=== PATIENT | female | born 1945 | race Caucasian/White ===

== ENCOUNTER → 2018-01-21 12:20 | Outpatient (CLI) | payer MEDICARE, SELFPAY ==
--- NOTE | 2018-01-21 12:22 | BI_ITS ---
MAMMOGRAPHY - BILATERAL SCREENING REASON FOR EXAM: Female, 72 years old. Routine annual screening examination. PERTINENT HISTORY: Non-contributory. TECHNIQUE: Digital bilateral breast yanni (3D mammographic acquisition) in the CC and MLO projections. 2-D mediolateral oblique (MLO) and craniocaudad (CC) views of both breasts were obtained. CAD: Full Field Digital Mammography with Computer Added Detection was performed. COMPARISON: Comparison is made with prior study dated December 21, 2013 and August 17, 2012. FINDINGS: Breast Composition: The breasts are heterogeneously dense, which may obscure small masses. There are no dominant masses or suspicious calcifications. Stable benign-appearing left axillary lymph nodes. No other significant abnormalities are identified. There has been no significant change since the prior study. BI/SCREENING MAMM (CAD), BILAT IMPRESSION: Stable bilateral screening mammogram. Yearly follow-up mammogram recommended. (A) ASSESSMENT CATEGORY: BIRADS Category 2: Benign. A letter regarding these results will be sent to the patient by the facility within 30 days. Approximately 10% of breast cancers are not detected by mammography. A normal mammogram should not delay biopsy of a clinically suspicious abnormality. [id number] Electronically Signed: Kahlil Carroll MD at 15:34 EDT Tel [phone], Service support ,
== END ==
PROVIDERS: Family Provider Internal Medicine; PCP Internal Medicine; Visit Provider Internal Medicine
DX: Z12.31 Encounter for screening mammogram for malignant neoplasm of breast (principal)
CPT/HCPCS: 77063; 77067

== ENCOUNTER → 2018-09-16 08:49 | Outpatient (CLI) | payer MEDICARE, SELFPAY ==
--- NOTE | 2018-09-16 08:53 | BD_ITS ---
STUDY: DUAL ENERGY X-RAY ABSORPTIOMETRY / DXA REASON FOR EXAM: Female, 73 years old. The patient is postmenopausal. Loss of height. TECHNIQUE: Bone Mineral Density (BMD) measurements of lumbar spine and bilateral hips were obtained. COMPARISON: Comparison is made with prior study dated June 12, 2016 and December 21, 2013. FINDINGS: Lumbar Spine (L1-L4): g/cm2 (1.120) / T-score (-0.4) / Z-score (1.3) Findings are suggestive of normal bone density with a low fracture risk. Left Femur Total: g/cm2 (1.092) / T-score (0.7) / Z-score (2.3) Left Femoral Neck: g/cm2 (0.991) / T-score (-0.3) / Z-score (1.5) Right Femur Total: g/cm2 (1.012) / T-score (0.0) / Z-score (1.7) Right Femoral Neck: g/cm2 (1.047) / T-score (0.1) / Z-score (1.9) The T-Scores on the most recent prior examination were: Lumbar Spine (L1-L4): There has been worsening of bone density since the previous examination. Left Femur Total: which represents an improvement of 0.6%. Right Femur Total: which represents an improvement of 1.4%. BD/Dexa Bone Density Study IMPRESSION: The patient is considered normal as outlined below according to World Collins Organization (WHO) criteria with a low fracture risk. There has been improvement of bone density since the previous examination. Reference Information: The T-score is the number of standard deviations above or below the standard which is normal for young adults at their peak bone mineral density. The World Health Organization (WHO) interprets the T-scores as follows: Above -1 Normal bone density Between -1 and -2.5 Osteopenia Equal to / or below -2.5 Osteoporosis As a practical clinical guideline, osteopenia may be graded as follows: Mild -1 through -1.5 Moderate -1.6 through -2.0 Severe -2.1 through -2.4 The Z-score is the number of standard deviations above or below age-matched controls. A Z-score of less than -1.5 would be considered abnormal. References: 1. NIH Osteoporosis and Related Bone Diseases http://www.osteo.org 2. International Society for Clinical Densitometry http://www.iscd.org 3. National Osteoporosis Foundation http://www.nof.org Electronically Signed: Kahlil Carroll, at 11:10 EDT , Service support ,
== END ==
PROVIDERS: Family Provider Internal Medicine; PCP Internal Medicine; Referring Provider Internal Medicine; Visit Provider Internal Medicine
DX: Z78.0 Asymptomatic menopausal state (principal)
CPT/HCPCS: 77080

== ENCOUNTER → 2019-07-05 06:55 | Outpatient (CLI) | payer MEDICARE, SELFPAY ==
--- NOTE | 2019-07-05 06:59 | BI_ITS ---
MAMMOGRAPHY - BILATERAL SCREENING REASON FOR EXAM: Female, 74 years old. Routine annual screening examination. PERTINENT HISTORY: Lost 10 pounds BILATERAL DIGITAL MAMMOGRAM WITH TOMOSYNTHESIS: Mediolateraloblique and craniocaudal views demonstrate no evidence of dominant parenchymal masses. No cluster of microcalcifications or architectural distortion is seen. No evidence of skin thickening is identified. There has been no significant change since 01/22/2000. Breast Density: The breast tissue is extremely dense which may lower the sensitivity of mammography. CAD was used to assist in final assessment. IMPRESSION: NORMAL MAMMOGRAM BILATERALLY. FINAL ASSESSMENT: BIRAD 1 (NEGATIVE) YEARLY MAMMOGRAM RECOMMENDED Electronically Signed: Mark Frias, at 16:51 EST Tel , Service support , BI/SCREEN MAMM (CAD) W/LUIS OSORIO
== END ==
PROVIDERS: PCP Internal Medicine; Referring Provider Internal Medicine; Visit Provider Internal Medicine
DX: Z12.31 Encounter for screening mammogram for malignant neoplasm of breast (principal)
CPT/HCPCS: 77063; 77067

== ENCOUNTER → 2020-10-24 12:32 | Outpatient (CLI) | payer MEDICARE, SELFPAY ==
--- NOTE | 2020-10-24 12:34 | BD_ITS ---
STUDY: DUAL ENERGY X-RAY ABSORPTIOMETRY / DXA REASON FOR EXAM: Female, 75 years old. M810. The patient is postmenopausal. TECHNIQUE: Bone Mineral Density (BMD) measurements of lumbar spine and bilateral hips were obtained. COMPARISON: Comparison is made with prior study dated 09/16/2018. FINDINGS: Lumbar Spine (L1-L4): g/cm2 (1.188) / T-score (0.2) / Z-score (1.9) Findings are suggestive of normal bone density with a low fracture risk. Left Femur Total: g/cm2 (1.033) / T-score (0.2) / Z-score (1.9) Left Femoral Neck: g/cm2 (0.923) / T-score (0.8) / Z-score (1.1) Right Femur Total: g/cm2 (0.975) / T-score (-0.3) / Z-score (1.5) Right Femoral Neck: g/cm2 (0.964) / T-score (-0.5) / Z-score (1.4) The T-Scores on the most recent prior examination were: Lumbar Spine (L1-L4): There has been improvement of bone density since the previous examination. Left Femur Total: which represents a worsening of 5.4%. Right Femur Total: which represents a worsening of 3.7%. BD/Dexa Bone Density Study IMPRESSION: The patient is considered normal as outlined below according to World Collins Organization (WHO) criteria with a low fracture risk. There has been worsening of bone density since the previous examination. Reference Information: The T-score is the number of standard deviations above or below the standard which is normal for young adults at their peak bone mineral density. The World Health Organization (WHO) interprets the T-scores as follows: Above -1 Normal bone density Between -1 and -2.5 Osteopenia Equal to / or below -2.5 Osteoporosis As a practical clinical guideline, osteopenia may be graded as follows: Mild -1 through -1.5 Moderate -1.6 through -2.0 Severe -2.1 through -2.4 The Z-score is the number of standard deviations above or below age-matched controls. A Z-score of less than -1.5 would be considered abnormal. References: 1. NIH Osteoporosis and Related Bone Diseases www osteo.org 2. International Society for Clinical Densitometry www iscd.org 3. National Osteoporosis Foundation www nof.org Electronically Signed: Kahlil Carroll MD at 15:34 EDT , Service support ,
--- NOTE | 2020-10-24 12:34 | BI_ITS ---
MAMMOGRAPHY - BILATERAL SCREENING REASON FOR EXAM: Female, 75 years old. Routine annual screening examination. PERTINENT HISTORY: Non-contributory. TECHNIQUE: Digital bilateral breast luis (3D mammographic acquisition) in the CC and MLO projections. 2-D mediolateral oblique (MLO) and craniocaudad (CC) views of both breasts were obtained. CAD: Full Field Digital Mammography with Computer Added Detection was performed. COMPARISON: Comparison is made with prior study dated 07/05/2019 and 01/21/2018. FINDINGS: Breast Composition: The breasts are heterogeneously dense, which may obscure small masses. There are no dominant masses or suspicious calcifications. Stable small benign-appearing bilateral axillary lymph nodes. No other significant abnormalities are identified. There has been no significant change since the prior study. BI/SCRN MAMM (CAD)W/LUIS BILAT IMPRESSION: Stable bilateral screening mammogram. Yearly follow-up mammogram recommended. (A) ASSESSMENT CATEGORY: BIRADS Category 2: Benign. A letter regarding these results will be sent to the patient by the facility within 30 days. Approximately 10% of breast cancers are not detected by mammography. A normal mammogram should not delay biopsy of a clinically suspicious abnormality. [id number] Electronically Signed: Kahlil Carroll MD at 14:37 EDT , Service support ,
== END ==
PROVIDERS: PCP Internal Medicine; Referring Provider Internal Medicine; Visit Provider Internal Medicine
DX: M81.0 Age-related osteoporosis without current pathological fracture (principal); Z12.31 Encounter for screening mammogram for malignant neoplasm of breast
CPT/HCPCS: 77063; 77067; 77080

== ENCOUNTER → 2022-08-15 | Outpatient (CLI) | payer SELFPAY ==
--- NOTE | 2022-08-15 13:00 | CT_ITS ---
INDICATION: HYPERTENSION EXAMINATION: CT CHEST WITHOUT CONTRAST - CT Chest W/O Contrast Injection. Cardiac over read examination. TECHNIQUE: Helically acquired images were obtained of the chest. A radiation dose optimization technique was used for this scan. IV Contrast dosage and agent: None. COMPARISON: None. FINDINGS: LUNGS, PLEURA AND LARGE AIRWAYS: No masses, consolidation, or edema. No pleural effusion or thickening. No pneumothorax. THYROID: No thyroid lesions. HEART AND PERICARDIUM: Heart size is normal. No pericardial effusion. Mild degree of the calcification of the coronary arteries. CORONARY ARTERIES: Coronary artery calcification VESSELS: Thoracic aorta is not dilated. MEDIASTINUM AND RITA: Small benign-appearing mediastinal lymph nodes. Esophagus is unremarkable. No hiatal hernia. UPPER ABDOMEN: No acute pathology. BONES: No suspicious lytic or blastic abnormality. CT/Limited Chest CT Cardiac Only IMPRESSION: Mild degree of coronary artery calcification. Electronically Signed: Kahlil Carroll MD at 15:16 EDT ,
--- NOTE | 2022-08-28 15:59 | CA.SCORE ---
Calcium Scoring Date of Study:: 08/15/22 Coronary Calcium Scoring: High-resolution Computed Tomographic imaging of the chest was performed on [08/15/2022], with particular attention paid to the coronary arteries. Images from the examination were analyzed for the presence and extent of coronary artery calcification , using coronary calcium quantification software. The patient tolerated the procedure well and there were no complications. The results of the coronary calcification analysis are provided below. Findings Coronary Artery Left Main (LM): 0 Left Anterior Descending (LAD): 15 Left Circumflex (LCX): 0 Right Coronary Artery (RCA): 7.5 Total Agatston Score: 22.5 Percentile Rankinth-50th Calcium Scoring Interpretation: Different methods to categorize the overall amount of coronary plaque. Overall amount CAC SIS Visual of coronary plaque P1 Mild -100 <2 1-2 vessels with mild amount of plaque P2 Moderate 101-300 3-4 1-2 vessels with moderate amount, 3 vessels with mild amount of plaque P3 Severe 301-999 5-7 3 vessels with moderate amount, 1 vessel with severe amount of plaque P4 Extensive >1000 >8 2-3 vessels with severe amount of plaque Calcium Score: Mild: 1-2 vessels w/mild amount of plaque Conclusion: Mild amount of coronary plaque only noted.
== END | disposition home or self-care (01) ==
PROVIDERS: PCP Internal Medicine; Referring Provider Internal Medicine; Visit Provider Internal Medicine
DX: I10 Essential (primary) hypertension (principal); I25.10 Atherosclerotic heart disease of native coronary artery without angina pectoris
CPT/HCPCS: 75571; 76380

== ENCOUNTER → 2023-01-06 | Outpatient (CLI) | payer MEDICARE, SELFPAY ==
--- NOTE | 2023-01-06 08:45 | BI_ITS ---
MAMMOGRAPHY - BILATERAL SCREENING REASON FOR EXAM: Female, 77 years old. Routine annual screening examination. PERTINENT HISTORY: Non-contributory. TECHNIQUE: Digital bilateral breast luis (3D mammographic acquisition) in the CC and MLO projections. 2-D mediolateral oblique (MLO) and craniocaudad (CC) views of both breasts were obtained. CAD: Full Field Digital Mammography with Computer Added Detection was performed. COMPARISON: Comparison is made with prior study dated October 24, 2020 and February 03, 2020. FINDINGS: Breast Composition: The breasts are heterogeneously dense, which may obscure small masses. There are no dominant masses or suspicious calcifications. Stable small benign-appearing bilateral axillary lymph nodes. No other significant abnormalities are identified. There has been no significant change since the prior study. BI/SCRN MAMM (CAD)W/LUIS BILAT IMPRESSION: Stable bilateral screening mammogram. Yearly follow-up mammogram recommended. (A) ASSESSMENT CATEGORY: BIRADS Category 2: Benign. A letter regarding these results will be sent to the patient by the facility within 30 days. Approximately 10% of breast cancers are not detected by mammography. A normal mammogram should not delay biopsy of a clinically suspicious abnormality. [id number] Electronically Signed: Kahlil Carroll MD at 12:50 EDT ,
== END | disposition home or self-care (01) ==
LOC: OPBI 08:44
PROVIDERS: PCP Internal Medicine; Referring Provider Internal Medicine; Visit Provider Internal Medicine
DX: Z12.31 Encounter for screening mammogram for malignant neoplasm of breast (principal)
CPT/HCPCS: 77063; 77067

== ENCOUNTER → 2023-07-31 | Outpatient (CLI) | payer MEDICARE, SELFPAY ==
--- NOTE | 2023-07-31 08:56 | BD_ITS ---
STUDY: DUAL ENERGY X-RAY ABSORPTIOMETRY / DXA REASON FOR EXAM: Female, 78 years old. M810 TECHNIQUE: Bone Mineral Density (BMD) measurements of lumbar spine and bilateral hips were obtained. COMPARISON: Comparison is made with prior study dated October 24, 2020. FINDINGS: Lumbar Spine (L1-L4): g/cm2 (1.015) / T-score (0.3) / Z-score (2.7) Findings are suggestive of normal bone density with a low fracture risk. Left Femur Total: g/cm2 (0.969) / T-score (0.2) / Z-score (2.2) Left Femoral Neck: g/cm2 (0.776) / T-score (-0.7) / Z-score (1.6) Right Femur Total: g/cm2 (0.870) / T-score (-0.6) / Z-score (1.4) Right Femoral Neck: g/cm2 (0.746) / T-score (-0.9) / Z-score (1.3) The T-Scores on the most recent prior examination were: Lumbar Spine (L1-L4): There has been worsening of bone density since the previous examination. Left Femur Total: which represents an improvement of 0.3%. Right Femur Total: which represents a worsening of 4.4%. BD/Dexa Bone Density Study IMPRESSION: The patient is considered normal as outlined below according to World Collins Organization (WHO) criteria with a low fracture risk. There has been worsening of bone density since the previous examination. Reference Information: The T-score is the number of standard deviations above or below the standard which is normal for young adults at their peak bone mineral density. The World Health Organization (WHO) interprets the T-scores as follows: Above -1 Normal bone density Between -1 and -2.5 Osteopenia Equal to / or below -2.5 Osteoporosis As a practical clinical guideline, osteopenia may be graded as follows: Mild -1 through -1.5 Moderate -1.6 through -2.0 Severe -2.1 through -2.4 The Z-score is the number of standard deviations above or below age-matched controls. A Z-score of less than -1.5 would be considered abnormal. References: 1. NIH Osteoporosis and Related Bone Diseases www osteo.org 2. International Society for Clinical Densitometry www iscd.org 3. National Osteoporosis Foundation www nof.org Electronically Signed: Kahlil Carroll MD at 14:33 EDT ,
== END | disposition home or self-care (01) ==
PROVIDERS: PCP Internal Medicine; Referring Provider Internal Medicine; Visit Provider Internal Medicine
DX: M81.0 Age-related osteoporosis without current pathological fracture (principal)
CPT/HCPCS: 77080

== ENCOUNTER 2024-04-12 13:48 | Emergency (ER) | payer MEDICARE, SELFPAY ==
[2024-04-12 13:48] VITALS: BP 176/103; PULSE 67; RESP 16; TEMP 36.7; O2SAT 98
--- NOTE | 2024-04-12 13:58 | RAD_ITS ---
STUDY: X-RAY - LEFT SHOULDER REASON FOR EXAM: Female, 78 years old. Left shoulder pain following a fall. TECHNIQUE: 4 view(s) of the shoulder. COMPARISON: None. FINDINGS: There is mild degenerative arthrosis of the glenohumeral articulation. There is degenerative arthrosis of the acromioclavicular joint without inferior osseous spur formation. Normal acromion. Nondisplaced fracture through the neck of the proximal left humerus with extension to the greater tuberosity. Soft tissue swelling. Normal visualized pulmonary apex. RAD/Shoulder min 2 Views IMPRESSION: Nondisplaced fracture through the surgical neck of the proximal left humerus with extension to the greater tuberosity. Soft tissue swelling. Electronically Signed: Kahlil Carroll MD at 14:42 EST ,
--- NOTE | 2024-04-12 14:13 | ED.RN ---
pt 02/18 pain, confirmed broken
[2024-04-12] MEDS: HYDROmorphone 1 MG/ML Syringe IM (14:49)
[2024-04-12 14:55] VITALS: BP 150/84; PULSE 67; RESP 16; O2SAT 98
[2024-04-12 14:56] VITALS: BMI 26.6
[2024-04-12 15:06] VITALS: BP 135/74; PULSE 78; RESP 16; O2SAT 98
--- NOTE | 2024-04-12 15:32 | EX.ED.UPPERE ---
HPI History of Present Illness Chief Complaint: Upper Extremity Injury Informant: patient and spouse/S.O. Narrative Narrative: 78-year-old female presenting to the emergency room with left shoulder pain. Patient states that she went to the pericardial area to film her working out and she tripped over the Bosu ball landing on her left shoulder. She notes pain. She notes her little finger was tingling. She denies any injury to head or legs [facility] Medical History Arthritis with psoriasis High cholesterol HTN (hypertension) Acute bronchitis, unspecified Home Medications ?Medication ?Instructions ?Recorded ?Last Taken ?Type amoxicillin 875 mg-potassium 1 tab PO BID #20 tabs 08/18/21 Unknown Rx clavulanate 125 mg tablet atenolol 25 mg tablet 25 mg PO DAILY 08/18/21 Unknown History benzonatate 200 mg capsule 200 mg PO TID PRN cough #30 caps 08/18/21 Unknown Rx oxycodone-acetaminophen 5 mg-325 1 tab PO Q6H PRN PRN pain 5 days 04/12/24 Unknown Rx mg tablet #20 TABLETS Allergy/AdvReac Type Severity Reaction Status Date / Time No Known Allergies Allergy Verified 04/12/24 13:49 Family History Other Hypertension Social History Smoking Status: Never smoker ROS [facility] [[email or web address] ED Constitutional Constitutional ED: Denies chills or weight loss Eyes Eyes: Denies change in vision or diplopia ENT ENT ED: Denies ear pain, rhinorrhea or sore throat Cardiovascular Cardiovascular: Denies chest pain, orthopnea, palpitations or racing heartbeat Respiratory/Chest Respiratory/Chest: Denies cough, dyspnea or orthopnea Gastrointestinal Gastrointestinal: Denies abdominal pain, diarrhea, nausea or vomiting Genitourinary Genitourinary ED: Denies dysuria, hematuria or urinary frequency Musculoskeletal Musculoskeletal: Reports other Details: See history of present illness ; Denies arthralgias or myalgias Integumentary Denies abscess or rash Neurologic Neurologic: Denies headache(s) or weakness Psychiatric Psychiatric: Denies anxiety, depression, suicidal ideation or suicidal thoughts Endocrine Endocrinology: Denies polydipsia, polyphagia or polyuria Allergic/Immunologic Allergic/Immunologic ED: Denies mouth swelling, tongue swelling or urticaria EXAM Physical Exam Const Vital Signs: 04/12/24 13:48 04/12/24 14:55 04/12/24 15:06 Temperature 98.1 F Temperature Source Temporal Pulse Rate 67 67 78 Respiratory Rate 16 16 16 Blood Pressure 176/103 H 150/84 H 135/74 H Blood Pressure Mean 127 106 94 Pulse Ox 98 98 98 Oxygen Delivery Method Room Air Room Air Room Air Positive well nourished and well developed General Appearance ED: well developed HEENT Reports normocephalic, head/scalp atraumatic and moist mucous membranes Eyes PERRL and EOMs intact bilaterally Neck full ROM, no lymphadenopathy, supple and no JVD Resp normal respiratory effort and clear to auscultation bilaterally Cardio regular rate, regular rhythm and no murmurs GI normal to inspection, nondistended, normoactive bowel sounds and non-tender Palpation: soft Back/Spine no CVA tenderness and normal ROM Extremity Extremity Narrative: Patient appears neurovascularly intact. Limited range of motion at the left shoulder due to pain. Neuro oriented x3 and CN's II-XII intact bilaterally Sensorium / Orientation: alert Motor Exam: strength 5/5 throughout Psych mental status grossly normal Mood & Affect: Negative for depressed or tearful Skin no rashes or lesions noted and no wounds MDM MDM MDM Narrative Medical decision making narrative: Differential diagnosis includes but not limited to fracture dislocation tendinous injury neurovascular injury My independent interpretation the plain films of the left shoulder is proximal humerus fracture with greater tuberosity fracture. Patient was placed in a sling. She was given intramuscular Dilaudid. I will write for pain medication. She will need to follow-up with orthopedics. History & Record Review Discussion w/independent historian: Patient and Significant other Radiography Diagnostic Testing: Clinical Impression(s) from Imaging Studies Shoulder X-Ray 04/12/24 13:58 IMPRESSION: Nondisplaced fracture through the surgical neck of the proximal left humerus with extension to the greater tuberosity. Soft tissue swelling. Electronically Signed: Kahlil Carroll MD at 14:42 EST , Discharge Plan Triage Chief Complaint: Upper Extremity Injury ED Provider: Luciano Holder Dx/Rx/DC Orders Clinical Impression: Fall, Closed fracture of left proximal humerus Instructions: ED Fracture, Shoulder Prescriptions: New oxycodone-acetaminophen 5-325 mg tablet 1 tab PO Q6H PRN PRN (Reason: pain) 5 Days Qty: 20 0RF No Action atenolol 25 mg tablet 25 mg PO DAILY amoxicillin-pot clavulanate 875-125 mg tablet 1 tab PO BID Qty: 20 0RF benzonatate 200 mg capsule 200 mg PO TID PRN (Reason: cough) Qty: 30 0RF Primary Care Provider: Erin Zhou Referrals: Erin Zhou MD [Primary Care Provider] - Yobany Rapp MD [Med Staff - Active Staff] - As soon as possible Print Language: Citizen Of [place] Disposition Disposition: Home, Self Care
[2024-04-12 16:00] VITALS: BP 150/74; PULSE 72; RESP 16; O2SAT 98
[2024-04-12 16:53] VITALS: BP 151/73; PULSE 71; RESP 16; TEMP 36.8; O2SAT 99
== END 2024-04-12 16:54 | disposition home or self-care (01) ==
PROVIDERS: Emergency Provider Emergency Medicine; PCP Internal Medicine; Visit Provider Emergency Medicine
DX: S42.302A Unspecified fracture of shaft of humerus, left arm, initial encounter for closed fracture (principal); X58.XXXA Exposure to other specified factors, initial encounter
CPT/HCPCS: 73030; 96372; 99284

== ENCOUNTER 2024-06-10 10:00 | Outpatient (RCR) | payer MEDICARE, SELFPAY ==
--- NOTE | 2024-05-27 10:45 | HP.PTEVAL ---
Patient's Visit Information Visit Information Visit Information: JORDON OLMOS is a 78 year old F referred to Physical Therapy by DOMITILA SCHWARTZ with a diagnosis of L 3 part fracture neck of humerus (nonsurgical). Date of Evaluation: 05/27/24 Physical Therapist: Tony Morrison, DPT, OCS, CSCS Visit Plan Frequency: 2-3x /Week Duration: 2 Months Plan: 2x/week for 3-6 week for(3 to start)... IE HEP: supine stick flexion adn er 10x, shoulder blade circles 10x, postural correction with HO, also reviewed precautions per protocol and no strength until 2 more weeks(doctor visit), Pt to get back to [employer] workout for rest of body, not using L arm. Start in clinic with manual PROM L shoulder , AAROM to AROM and PROM L shoulder. MH. Progress after doctor visit to strength starting with submaximal isometrics and progressing to tolerance. Subjective Subjective: I fell into corner of cement floor on shoulder and brike it on the left side. That was 7 weeks ago. Begin of April. Squad took her out of basement and to ER adn put in sling adn to [facility]. They kept her in sling and gave pain meds but she took tylenol. Saw doctor 05/17/24 adn x ray showed healing. Got out of sling. No exercises just go to therapy. I have been using it quite a bit but hard to lift overhead and is left handed. Can't do hair. Dresses difficulty but easy. Dresses self. No pain and it is not an issue since early April, had ice machine. 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 Works out at [employer] but not since this happened, does nto want to fall. Fall was due to tripping on an item, balance is fine. sleeping on couch (which is normal) and comfortably. Hobbies: water color portraits and has started using L to do them. precautions: one Objective Objective: Walks and trasnfers I today with good balance. cervical aROM WFL at 45 ext adn 55 B rotation without pain. scap AROM WFL B. elb ow and hand and wrist AROM symmetrical and WFL. R shoulder aROM 150 flexion/abd, 45 er, L5 IR: L shoulder is 45 flexion, 60 abd, 18 er, IR not tested. PROM L shoulder to 110 flexion and 90 abd and 25 er all limited by pain. reflexes 2/3 B bi and tricep Sensation UE WNL to gross light touch. Balance/Special Test Scores Quick DASH Score: 31.8175 Goals Goal 1:: I appropriate management of HEP to return to [employer] Goal Time Frame: 4-6 Weeks Goal 2:: AROM L shoulder 140 flexion adn 45 er to get hand to head to do hair. Goal Time Frame: 4-6 Weeks Goal 3:: Reach overhead without pain Goal Time Frame: 4-6 Weeks Goal 4:: Pt feel activities 90% back to normal Goal Time Frame: 4-6 Weeks Goal 5:: quickdash score 15 or better Goal Time Frame: 4-6 Weeks Rehabilitation Potential Physical Therapy Diagnosis: Limited ROM and strength limiting funciton of L shoulder and ADLs Rehabilitation Potential: Fair Anticipated Interventions Patient/Client Instruction: Educate patient on: Condition and Plan of Care For the Purpose of:: To decrease pain, To increase ROM, To improve muscle performance and motor function, To increase tolerance to activity/condition/position and To improve ability of physical actions for home/community/work/leisure Therapeutic Exercise to Include: Postural training, Passive ROM and Active ROM For the Purpose of:: To decrease pain, To increase ROM, To improve nutrient delivery to tissue, To improve muscle performance and motor function and To increase tolerance to activity/condition/position Manual Therapy Techniques to Include: Passive ROM and Soft tissue mobilization For the Purpose of:: To decrease pain, To increase ROM, To improve nutrient delivery to tissue and To improve muscle performance and motor function Cryotherapy (ice pack, ice massage): Yes Thermo therapy (hot pack): Yes For the Purpose of:: To decrease swelling/inflammation and To improve nutrient delivery to tissue Text: Thank you for the opportunity to evaluate your patient. For Medicare and Medicare HMO plans, please review the plan of care and approve it. It will need to be FAXED BACK to us at [phone] for Medicare purposes. For Medicare only, by signing this I certify the plan of care. Please let me know if there are questions or concerns regarding this plan of care. Physician Signature: Date:
--- NOTE | 2024-05-27 11:30 | HP.PTREVAL ---
Re-Evaluation Intro: DOMITILA SCHWARTZ, It has been my pleasure to treat JORDON OLMOS over the last 1 visits for L 3 part fracture neck of humerus (nonsurgical). Please see the progress note below for an update on the physical therapy plan of care! Plan Plan Plan: 2x/week for 3-6 week for(3 to start)... IE HEP: supine stick flexion adn er 10x, shoulder blade circles 10x, postural correction with HO, also reviewed precautions per protocol and no strength until 2 more weeks(doctor visit), Pt to get back to [employer] workout for rest of body, not using L arm. Start in clinic with manual PROM L shoulder , AAROM to AROM and PROM L shoulder. MH. Progress after doctor visit to strength starting with submaximal isometrics and progressing to tolerance. Balance/Gait/Functional tests Balance/Special Test Scores Quick DASH Score: 31.8175 Goals Goals Goal 1:: I appropriate management of HEP to return to [facility] Goal Time Frame: 4-6 Weeks Goal 2:: AROM L shoulder 140 flexion adn 45 er to get hand to head to do hair. Goal Time Frame: 4-6 Weeks Goal 3:: Reach overhead without pain Goal Time Frame: 4-6 Weeks Goal 4:: Pt feel activities 90% back to normal Goal Time Frame: 4-6 Weeks Goal 5:: quickdash score 15 or better Goal Time Frame: 4-6 Weeks Anticipated Interventions Anticipated Interventions Patient/Client Instruction: Educate patient on: Condition and Plan of Care For the Purpose of:: To decrease pain, To increase ROM, To improve muscle performance and motor function, To increase tolerance to activity/condition/position and To improve ability of physical actions for home/community/work/leisure Therapeutic Exercise to Include: Postural training, Passive ROM and Active ROM For the Purpose of:: To decrease pain, To increase ROM, To improve nutrient delivery to tissue, To improve muscle performance and motor function and To increase tolerance to activity/condition/position Manual Therapy Techniques to Include: Passive ROM and Soft tissue mobilization For the Purpose of:: To decrease pain, To increase ROM, To improve nutrient delivery to tissue and To improve muscle performance and motor function Cryotherapy (ice pack, ice massage): Yes Thermo therapy (hot pack): Yes For the Purpose of:: To decrease swelling/inflammation and To improve nutrient delivery to tissue Re-Evaluation Ending Re-evaluation ending: Please do not hesitate to contact me at [phone] by phone or if you have questions or concerns regarding this new plan of care! Sincerely, Tony Morrison, DPT, OCS, CSCS
--- NOTE | 2024-07-13 14:28 | HP.PT.NRP ---
Patient Information Patient Information: JORDON OLMOS was seen in my office for initial evaluation on 05/27/24. The following Plan of Care was established for this patient: POC Established Initial Frequency: 2-3x /Week Initial Duration: 2 Months Anticipated Interventions Patient/Client Instruction: Educate patient on: Condition and Plan of Care For the Purpose of:: To decrease pain, To increase ROM, To improve muscle performance and motor function, To increase tolerance to activity/condition/position and To improve ability of physical actions for home/community/work/leisure Therapeutic Exercise to Include: Postural training, Passive ROM and Active ROM For the Purpose of:: To decrease pain, To increase ROM, To improve nutrient delivery to tissue, To improve muscle performance and motor function and To increase tolerance to activity/condition/position Manual Therapy Techniques to Include: Passive ROM and Soft tissue mobilization For the Purpose of:: To decrease pain, To increase ROM, To improve nutrient delivery to tissue and To improve muscle performance and motor function Cryotherapy (ice pack, ice massage): Yes Thermo therapy (hot pack): Yes For the Purpose of:: To decrease swelling/inflammation and To improve nutrient delivery to tissue Last Seen Last Seen: This patient was last seen in our office 06/10/24. Pertinent comments regarding their Physical therapy will appear below: Pt seen 5 visits of POC and no showed for last visit. at this point, it has been over 4 weeks and I will discontinue due to nonattendance. At this point I will be discontinuing this patient from physical therapy. I would be happy to see this patient again in the future if found appropriate by the physician. Thank you! Tony Morrison, DPT, OCS, CSCS Balance/Gait/Functional tests Balance/Special Test Scores Quick DASH Score: 31.8175
== END 2024-06-10 19:00 | disposition home or self-care (01) ==
LOC: PT 10:00
PROVIDERS: PCP Internal Medicine
DX: S42.232D 3-part fracture of surgical neck of left humerus, subsequent encounter for fracture with routine healing (principal)
CPT/HCPCS: 97110; 97140; 97161

== ENCOUNTER → 2025-03-02 | Outpatient (CLI) | payer MEDICARE, SELFPAY ==
--- NOTE | 2025-03-02 07:42 | BI_ITS ---
EXAM: SCRN MAMM (CAD)W/LUIS BILAT DATE: 03/02/2025 CLINICAL HISTORY: F, Age 79 y/o , BILAT BRST SCREEN LUIS ADD-ON No family history. TECHNIQUE: Procedure Code: [id number] Modality: MG Procedure: SCRN MAMM (CAD)W/LUIS BILAT COMPARISON: Prior exam(s) dated January 06, 2023.. FINDINGS: TISSUE DENSITY: The breasts are heterogeneously dense, which may obscure small masses. Bilateral Breast Mammographic Findings: No significant masses, calcifications or other abnormalities are identified. Stable subcentimeter calcified nodule in the central portion of the right breast. Stable benign-appearing axillary lymph nodes. No suspicious masses, areas of developing architectural distortion, or suspicious calcifications. There has been no significant interval change. BI/SCRN MAMM (CAD)W/LUIS BILAT IMPRESSION: Stable bilateral screening mammogram. OVERALL FINAL ASSESSMENT BI-RADS 2: BENIGN RECOMMENDATION: Routine annual follow-up in 1 Year Additional Recommendation none A letter with findings and recommendations will be mailed to the patient. Reading Location: [place] [id number]
== END | disposition home or self-care (01) ==
LOC: OPBI 07:41
PROVIDERS: PCP Internal Medicine; Referring Provider Internal Medicine; Visit Provider Internal Medicine
DX: Z12.31 Encounter for screening mammogram for malignant neoplasm of breast (principal)
CPT/HCPCS: 77063; 77067